=== PATIENT | female | born 1935 ===

== ENCOUNTER 2017-02-13 15:37 | Observation (INO) | payer MEDICARE, BC ==
[~2017-02-13] VITALS: Ht 157.5 cm; Wt 58.2 kg
[2017-02-13] MEDS ORDERED: HYDROCHLOROTH12.5 M1 PO (15:46)
[2017-02-13] MEDS ORDERED: COREG12.5 MG PO (15:47)
[2017-02-13] MEDS ORDERED: COREG25 MG PO (15:48)
[2017-02-13] MEDS ORDERED: FUROSEMIDE20 MG PO (15:50)
[2017-02-13] MEDS ORDERED: VITAMIN D250000 UNIT PO (15:51)
[2017-02-13] MEDS ORDERED: AZELASTINE137 MCG/0. NASAL (15:51)
[2017-02-13] MEDS ORDERED: PROMETHAZINE W473 M1 PO (15:51)
[2017-02-13] MEDS ORDERED: ALENDRONATE SOD70 MG PO (17:24)
[2017-02-13 20:00] VITALS: BP 159/74
[2017-02-14] VITALS: BP 150/66
[2017-02-14 03:17] VITALS: BP 159/74; Ht 157.5 cm; Wt 58.2 kg
[2017-02-14 04:00] VITALS: BP 131/59
[2017-02-14 07:51] VITALS: BP 145/66
[2017-02-14 10:38] LABS: BASOPHILS 0.1 % (0-2); EOSINOPHILS 0.1 % (0-7); HEMATOCRIT 43.2 % (36.0-48.0); HEMOGLOBIN 13.7 g/dL (12-16); IMMATURE GRANULOCYTES 0.2 % (0-5); MCH 30.2 pg (26.0-34.0); MCHC 31.7 g/dL (31.0-37.0); MCV 95.4 fL (80.0-100.0); MEAN PLATELET VOLUME 10.7 fL (7.4-10.4); MONOCYTES 7.2 % (2-11); NEUTROPHILS 83.4 % (40-80); PLATELET COUNT 187 10x3/uL (130-400); RBC 4.53 10x6/uL (4.00-5.40); RDW 12.8 % (11.5-14.5); WBC 10.1 10x3/uL (4.8-10.8)
[2017-02-14 10:49] LABS: CALC OSMOLALITY 279 mosm/kg (275-300); CALCIUM 8.3 mg/dL (8.5-10.1); CARBON DIOXIDE 36.8 mmol/L (21.0-32.0); CHLORIDE - SERUM 98 mmol/L (98-107); CREATININE - SERUM 0.7 mg/dL (0.6-1.3); GLUCOSE 181 mg/dL (74-106); POTASSIUM - SERUM 3.8 mmol/L (3.5-5.1); SODIUM 137 mmol/L (136-145); UREA NITROGEN 16 mg/dL (7-18); eGFR NON AFRICAN AMERICAN 85 mL/min (90-120)
[2017-02-14 15:28] VITALS: BP 151/64
[2017-02-14 19:00] VITALS: BP 165/61
[2017-02-15] VITALS: BP 158/63
[2017-02-15 04:00] VITALS: BP 156/69
[2017-02-15 07:35] VITALS: BP 137/61
[2017-02-15] MEDS ORDERED: TAMIFLU75 MG PO (10:50)
== END 2017-02-15 12:15 | disposition home or self-care (01) ==
LOC: D.M2 15:37 → OBSVTIME 15:37 → D.M2 02-15 12:15
PROVIDERS: Emergency Medicine
DX: J11.1 Influenza due to unidentified influenza virus with other respiratory manifestations (principal); E86.0 Dehydration; I10 Essential (primary) hypertension; Z85.3 Personal history of malignant neoplasm of breast; I44.7 Left bundle-branch block, unspecified; I35.0 Nonrheumatic aortic (valve) stenosis